=== PATIENT | female | born 1955 | race Caucasian/White ===

== ENCOUNTER 2024-03-24 07:56 | Inpatient (IN) | payer MEDICARE, BC, SELFPAY ==
[2024-03-24] VITALS (25 sets, daily range): BP systolic 79–134; BP diastolic 50–82; PULSE 57–74; RESP 14–20; TEMP 35.6–37.1; O2SAT 93–100; BMI 22.8
[2024-03-24] MEDS: SODIUM CHLORIDE 0.9 % (FLUSH) 10 ML SYRINGE IVF ×2 (09:14→23:33)
[2024-03-24] MEDS: LACTATED RINGERS 1000 ML 1,000 ML 100 ML IV (10:00)
[2024-03-24] MEDS: ACETAMINOPHEN 500 MG TABLET 1000 MG PO ×3 (10:02→23:30)
[2024-03-24] MEDS: CELECOXIB 200 MG CAPSULE PO (10:03)
[2024-03-24] MEDS: OXYCODONE (CR) 10 MG TAB.ER.12H PO (10:03)
--- NOTE | 2024-03-24 10:15 | CRLHL7_ITS ---
For Patients: As a result of the Century Cures Act, medical imaging exams and procedure reports are released immediately into your electronic medical record. You may view this report before your referring provider. If you have questions, please contact your health care provider. INDICATION: Bilateral total hip arthroplasty TECHNIQUE: C-arm fluoroscopy for bilateral total hip arthroplasty. Two C-arm spot images were obtained. Fluoroscopy time was 47.2 seconds. COMPARISON: 12/23/2023 FINDINGS: C-arm fluoroscopy for bilateral THR. IMPRESSION: C-arm fluoroscopy for bilateral THR. Dictated by Cleveland Senior MD @ 03/25/2024 2:56:33 PM (Electronically Signed)
--- NOTE | 2024-03-24 10:15 | CRLHL7_ITS ---
For Patients: As a result of the Century Cures Act, medical imaging exams and procedure reports are released immediately into your electronic medical record. You may view this report before your referring provider. If you have questions, please contact your health care provider. INDICATION: Bilateral total hip arthroplasty TECHNIQUE: C-arm fluoroscopy for bilateral total hip arthroplasty. Two C-arm spot images were obtained. Fluoroscopy time was 42.6 seconds. COMPARISON: None FINDINGS: C-arm fluoroscopy for bilateral THR. IMPRESSION: C-arm fluoroscopy for bilateral THR. Dictated by Cleveland Senior MD @ 03/25/2024 3:04:42 PM (Electronically Signed)
[2024-03-24] MEDS: MIDAZOLAM HCL 1 MG/ML inj IVP (10:36)
[2024-03-24] MEDS: fentaNYL 100 MCG/2 ML inj IVP (10:36)
--- NOTE | 2024-03-24 10:46 | SUR.PREOP ---
TIME?OUT:?1035, bilateral hips PT/RN/MDA?VERIFICATION?OF?SURGICAL?SITE,?PROCEDURE,?AND?CONSENT OBTAINED?PRIOR?TO?INVASIVE?PROCEDURE.
[2024-03-24] MEDS: CEFAZOLIN 2 GM INJ IVP (11:15)
[2024-03-24] MEDS: TRANEXAMIC ACID 100 MG/ML INJ 1000 MG IV (11:15)
[2024-03-24] MEDS: LACTATED RINGERS 500 ML 500 ML 125 ML IV (12:36)
[2024-03-24] MEDS: LACTATED RINGERS 500 ML 500 ML 100 ML IV (13:31)
--- NOTE | 2024-03-24 13:33 | CRLHL7_ITS ---
For Patients: As a result of the Cures Act, medical imaging exams and procedure reports are released immediately into your electronic medical record. You may view this report before your referring provider. If you have questions, please contact your health care provider. Indication: Postop JODIE Technique: AP hip centered pelvis and lateral view right hip Findings/Impression: Hardware from a right total hip arthroplasty is in satisfactory position. Bone alignment is normal. No sign of acute fracture. Postop changes are within normal limits. Dictated by Reed Grissom MD @ 03/25/2024 12:26:23 PM (Electronically Signed)
--- NOTE | 2024-03-24 13:34 | CRLHL7_ITS ---
For Patients: As a result of the Century Cures Act, medical imaging exams and procedure reports are released immediately into your electronic medical record. You may view this report before your referring provider. If you have questions, please contact your health care provider. Indication: Postop Technique: Portable cross-table lateral view left hip Findings/Impression: Hardware from a left total hip arthroplasty is in satisfactory position. Bone alignment is normal. No sign of acute fracture. Postop changes are within normal limits. Dictated by Reed Grissom MD @ 03/25/2024 12:25:19 PM (Electronically Signed)
--- NOTE | 2024-03-24 13:42 | P.ORPRC_ITS ---
Procedure Note Date of procedure: 03/24/24 Procedure: PREOPERATIVE DIAGNOSIS: Bilateral hip osteoarthritis POSTOPERATIVE DIAGNOSIS: Bilateral hip osteoarthritis NAME OF OPERATION: Bilateral total hip arthroplasty SURGEON: Vladimir Coyle MD CONVERTING TECHNICIAN: Anh Sigala PA-C, ESTEVAN Hughes IMPLANTS: 1. J[employer]J Carlos # 52 sector ingrowth cup 2. 36 x 52 +4 neutral polyethylene 3. Actis # 6 high collared ingrowth stem 4. 36 + 1.5 ceramic femoral head ANESTHESIA: General ESTIMATED BLOOD LOSS: 800 cc COMPLICATIONS: None SPECIMENS: None DRAINS: None PREOPERATIVE ANTIBIOTICS: Ancef 1 g, prior to each incision INDICATIONS: The patient is a 69-year-old with a longstanding history of severe, unrelenting bilateral hip pain secondary to end-stage right hip osteoarthritis. Despite appropriate nonoperative management, including activity modification, use of an assist device, anti-inflammatories, [id number] pain medication, physical therapy and injections, they continue to have pain and disability. Operative intervention was offered. The risks, benefits and expected outcomes were discussed in detail. These included but were not limited to: Infection, bleeding, injury to blood vessel or nerve, venous thromboembolism. All questions were answered to their satisfaction. Use of an geological survey field assistant was necessary throughout the case for patient positioning and safety, soft tissue retraction and closure. PROCEDURE: The patient was placed supine on the Bond table. General anesthesia was administered. The geological survey field assistant made sure the patient was properly positioned. The both hips were prepped and draped in the usual sterile fashion. The image intensifier was brought in for a perfect AP pelvis and a perfect double tear drop AP view of each hip which were used for intraoperative templating with our fluoroscopic guide. We started with the more symptomatic right hip. An oblique incision was made 3 cm distal and 3 cm lateral to the anterior superior iliac spine. The geological survey field assistant retracted the soft tissues to protect them. Subcutaneous dissection was taken with electrocautery to the superficial fascia. The fascia was divided in line with the incision. Blunt dissection was carried medially to the tensor fascia wilder and sartorius interval. Deep dissection was carried with electrocautery. The circumflex vessels were cauterized and divided. The capsule was exposed and then divided in a T-fashion, tagged with #1 Ethibond sutures. Retractors were placed in the joint, held by the geological survey field assistant. The corkscrew was placed in the femoral head. The neck cut was made in the subcapital region. We made a second neck cut more distal. The napkin ring of bone was removed. The femoral head was removed intact. Acetabular retractors were placed, held by the geological survey field assistant. The labrum was sharply debrided. The capsule was released. The 43 mm reamer was used to the true medial wall. We then enlarged in 2 mm increments using the image intensifier for our reamer placement. We impacted the cup which had excellent purchase. We placed the polyethylene. Attention was then turned to the proximal femur. The limb was placed in 140 degrees of external rotation, maximum extension and adduction. A significant amount of time was spent releasing the capsule to allow us to deliver the femur into the wound and complete the femoral side safely. Retractors were held by the geological survey field assistant throughout the femoral preparation. The box blank machine operator helper and canal finder were used. Broaches were used to a stable size. The calcar reamer was used. Trial components were placed. The hip was reduced and was found to be stable with appropriate soft tissue tension. Length and offset had been nicely restored using the image intensifier and our fluoroscopic guide. Trial components were removed. The stem was impacted. We placed the femoral head. Again, the hip was reduced and was found to be stable with appropriate soft tissue tension. Length and offset had been nicely restored. The geological survey field assistant did a three minute dilute Betadine solution soak. The geological survey field assistant irrigated the wound with 3 liters of normal saline via pulse lavage. The geological survey field assistant repaired the anterior capsule with a #1 Vicryl and our previously placed Ethibond sutures. The geological survey field assistant closed the fascia over the tensor fascia wilder with a #1 PDO Stratafix, subcutaneous tissues with 2-0 Vicryl, skin with a running 3-0 Stratafix and glue. A dry dressing was applied by the geological survey field assistant. EBL on the right hip was 400. The patient's vitals were stable. We therefore elected to proceed with left hip replacement. An oblique incision was made 3 cm distal and 3 cm lateral to the anterior superior iliac spine. The geological survey field assistant retracted the soft tissues to protect them. Subcutaneous dissection was taken with electrocautery to the superficial fascia. The fascia was divided in line with the incision. Blunt dissection was carried medially to the tensor fascia wilder and sartorius interval. Deep dissection was carried with electrocautery. The circumflex vessels were cauterized and divided. The capsule was exposed and then divided in a T-fashion, tagged with #1 Ethibond sutures. Retractors were placed in the joint, held by the geological survey field assistant. The corkscrew was placed in the femoral head. The neck cut was made in the subcapital region. We made a second neck cut more distal. The napkin ring of bone was removed. The femoral head was removed intact. Acetabular retractors were placed, held by the geological survey field assistant. The labrum was sharply debrided. The capsule was released. The 43 mm reamer was used to the true medial wall. We then enlarged in 2 mm increments using the image int ensifier for our reamer placement. We impacted the cup which had excellent purchase. We placed the polyethylene. Attention was then turned to the proximal femur. The limb was placed in 140 degrees of external rotation, maximum extension and adduction. A significant amount of time was spent releasing the capsule to allow us to deliver the femur into the wound and complete the femoral side safely. Retractors were held by the geological survey field assistant throughout the femoral preparation. The box blank machine operator helper and canal finder were used. Broaches were used to a stable size. The calcar reamer was used. Trial components were placed. The hip was reduced and was found to be stable with appropriate soft tissue tension. Length and offset had been nicely restored using the image intensifier and our fluoroscopic guide. Trial components were removed. The stem was impacted. We placed the femoral head. Again, the hip was reduced and was found to be stable with appropriate soft tissue tension. Length and offset had been nicely restored. The geological survey field assistant did a three minute dilute Betadine solution soak. The geological survey field assistant irrigated the wound with 3 liters of normal saline via pulse lavage. The geological survey field assistant repaired the anterior capsule with a #1 Vicryl and our previously placed Ethibond sutures. The geological survey field assistant closed the fascia over the tensor fascia wilder with a #1 PDO Stratafix, subcutaneous tissues with 2-0 Vicryl, skin with a running 3-0 Stratafix and glue. A dry dressing was applied by the geological survey field assistant. Sponge and needle counts were correct x 2. The patient tolerated the procedure well; there were no apparent complications. They were awakened and extubated in the operating room, sent to the Post-Anesthesia Care Unit in satisfactory condition. PLAN: 1. The patient will be mobilized with physical therapy, weight-bearing as tolerates 2. Xarelto x 5 days then aspirin x 30 days will be used for DVT prophylaxis 3. The patient will be discharged once medically appropriate
--- NOTE | 2024-03-24 14:28 | P.ANES_ITS ---
Anesthesia Charges Start Date/Time Anesthesia Start Date: 03/24/24 Anesthesia Start Time: 10:48 Stop Date/Time Anesthesia Stop Date: 03/24/24 Anesthesia Stop Time: 14:29 Coding CPT Codes CPT Codes: ANESTH HIP ARTHROPLASTY - 44463 ([id number]) P1 - NORMAL HEALTHY PATIENT, QK - MANAGER EMPLOYEE RELATIONS 2-4 CNCRNT ANEKarina PROC, QX - PATTERN DATA OPERATOR [employer] W/ MED DIRECTION
--- NOTE | 2024-03-24 14:28 | W.ANESCHARGE ---
Anesthesia Charges Start Date/Time Anesthesia Start Date: 03/24/24 Anesthesia Start Time: 10:48 Stop Date/Time Anesthesia Stop Date: 03/24/24 Anesthesia Stop Time: 14:29 Coding CPT Codes CPT Codes: ANESTH HIP ARTHROPLASTY - 86580 ([id number]) P1 - NORMAL HEALTHY PATIENT, QK - LOGISTIC SPECIALIST 2-4 CNCRNT ANEKarina PROC, QX - ENGINE REPAIRER SERVICE [employer] W/ MED DIRECTION
--- NOTE | 2024-03-24 14:37 | PM.IMCN1 ---
Date of Consult Consult date: 03/24/24 Primary Care Provider: Africa Patricia PA-C Consult Narrative Narrative: Nataliia Stephens is a 69 year old female with no significant past medical history except for Mitral valve prolapse, Patent foramen ovale, Rt eye vitreous detachment & Bilateral hip osteoarthritis , currently is s/p Bilateral total hip arthroplasty today March 24. ESTIMATED BLOOD LOSS: 800 cc. Patient denies any personal history of blood clots or miscarriages. She mentioned that her sibling had a blood clot and was told that it is triggered by his cancer. Patient does not take any chronic medications or supplements. When I met her she states that she feels great and is happy that she has done with this surgery. Review of Systems Status of ROS: Reports: 6 or more systems reviewed and unremarkable except as noted in History and below PFSH PFSH Surgical History (Updated 03/24/24 @ 16:29 by Geno Herman MD) Hx of neck surgery ?Z98.890 - Other specified postprocedural states (ICD-10) Ovarian cyst ?N83.209 - Unspecified ovarian cyst, unspecified side (ICD-10) Family History (Updated 12/23/23 @ 08:39 by Giovanna Arana ~ [facility], [facility]) Family/Other Arthritis Social History What is your current living situation?: I presently have a place to live Problems where you live: no known problems Problems where you live details: xx In the past 12 months, utilities in danger of being shut off: no In past 12 months, lack of transportation kept you from medical appts, meetings, work, or getting things needed for daily living: no In the past 12 mos, have been you worried that your food would run out before you had money to buy more?: never true In the past 12 mos, the food you bought just didn't last and you didn't have money to buy more?: never true Highest level of school completed/degree received: decline to answer Smoking Status: Never smoker How often do you have a drink containing alcohol: 2-4 times a month How often do you have six or more drinks on one occasion: Never AUDIT-C Alcohol total score: 2 Non-prescribed substance use: denies use Caffeine: Yes How often does anyone, including family, friends and others, physically hurt you: never How often does anyone, including family, friends and others, insult or talk down to you: never How often does anyone, including family, friends and others, threaten you with harm: never How often does anyone, including family, friends and others, scream or curse at you: never Meds Home Medications and Allergies Home Medications ?Medication ?Instructions ?Recorded ?Confirmed ?Type No Known Home Medications 12/23/23 03/24/24 History Allergies Allergy/AdvReac Type Severity Reaction Status Date / Time No Known Drug Allergies Allergy Verified 03/24/24 08:11 Exam Narrative: Exam Narrative: Physical exam GENERAL: Comfortable, no acute distress. HEAD AND NECK: Atraumatic, normocephalic CARDIOVASCULAR: RRR. Normal S1, S2. No murmurs. RESPIRATORY: Clear to auscultation B/L. Good air entry B/L. No wheezes or rhonchi. NEUROLOGY: Alert, awake, oriented X 3. Normal speech. PSYCH: Normal mood, normal affect. Const: Vital Signs, click to edit/add: Vital Signs - 24 hr 03/24/24 08:40 03/24/24 10:35 03/24/24 10:40 Temperature 98.8 F Pulse Rate 69 74 60 Respiratory Rate 20 20 20 Blood Pressure 126/81 134/82 117/66 Pulse Oximetry 100 100 98 Oxygen Delivery Me thod Room Air Nasal Cannula Nasal Cannula Oxygen Flow Rate 2 2 03/24/24 14:25 Temperature 97.8 F Pulse Rate 66 Respiratory Rate 16 Blood Pressure 88/52 L Pulse Oximetry 95 Oxygen Delivery Me thod Room Air Oxygen Flow Rate Assessment and Plan Assessment and plan (1) Status post bilateral total hip replacement: Problem comment: s/p Bilateral total hip arthroplasty March 24 Status: Acute (2) Osteoarthritis of right hip: Problem comment: -s/p Bilateral total hip arthroplasty today March 24 -Start early ambulation with physical therapy. -Start Xarelto x 5 days then aspirin x 30 days for DVT prophylaxis -Monitor for urine output postoperatively, bladder scan if needed. -Monitor vital signs. -Encourage incentive spirometry. Status: Acute (3) Osteoarthritis of left hip: Problem comment: s/p Bilateral total hip arthroplasty today March 24 Status: Acute (4) Patent foramen ovale: Problem comment: No Hx of Sx repair Status: Acute (5) Mitral valve prolapse: Status: Acute (6) Vitreous detachment of right eye: Status: Acute Total Time Spent Total Time Spent: Time spent: Today I spent 50 minutes seeing the patient, discussing the patient with ER staff, reviewing Expanse and EPIC notes/diagnostics, discussing the care plan with our care time that includes social work, PT/OT, pharmacy, RT, shelter and documenting my impressions and plan in the medical record.
[2024-03-24] MEDS: ePHEDrine sulfate 5 MG/ML inj IVP ×3 (14:43→14:58)
--- NOTE | 2024-03-24 14:48 | P.ANES_ITS ---
Anesthesia Charges Start Date/Time Anesthesia Start Date: 03/24/24 Anesthesia Start Time: 10:48 Stop Date/Time Anesthesia Stop Date: 03/24/24 Anesthesia Stop Time: 14:29 Coding CPT Codes CPT Codes: ANESTH HIP ARTHROPLASTY - 98346 ([id number]) QK - DYNAMICS AX TECHNICAL ARCHITECT 2-4 CNCRNT ANES PROC, QX - PSYCHIATRIC AIDE INSTRUCTOR SVC W/ MD MED DIRECTION, P1 - NORMAL HEALTHY PATIENT
--- NOTE | 2024-03-24 14:48 | W.ANESCHARGE ---
Anesthesia Charges Start Date/Time Anesthesia Start Date: 03/24/24 Anesthesia Start Time: 10:48 Stop Date/Time Anesthesia Stop Date: 03/24/24 Anesthesia Stop Time: 14:29 Coding CPT Codes CPT Codes: ANESTH HIP ARTHROPLASTY - 17083 ([id number]) QK - RESTORER PAPER AND PRINTS 2-4 CNCRNT ANES PROC, QX - RENEWABLE ENERGY CONSULTANT SVC W/ MD MED DIRECTION, P1 - NORMAL HEALTHY PATIENT
--- NOTE | 2024-03-24 14:50 | P.NB_ITS ---
Nerve Block Nerve Block Time Seen by Provider: 10:37 Date Seen: 03/24/24 Type of block requested by surgeon for post-operative analgesia: MAREN/LFCN Side: right Time out performed: Yes Verification of patient name: Yes Verification of date of : Yes Site marking: site marked Name of person performing procedure: Rcihy Continuous monitoring Was continuous monitoring of O2 sat, B/P, automated process operator, recorded every 15 minutes?: Yes Procedure Checklist: sterile prep, needles and gloves Ultrasound guided. Images saved: Yes Medications given in 5ml increments after negative aspiration: Marcaine %: 0.25 mL: 17 Needle gauge: 20 and Exparel mL: 8 Patient tolerated procedure well: Yes Additional comments: Needle noted below psoas tendon needle noted adjacent to LFCN Block Charges Block Charge (with Pro Fee): Other Periph Nerve Block Use of Ultrasound Machine for Block: Yes- US Guidance/pain block
[2024-03-24] MEDS: fentaNYL 100 MCG/2 ML inj 50 MCG IVP ×2 (14:53→15:03)
--- NOTE | 2024-03-24 14:55 | W.PM.NB ---
Nerve Block Nerve Block Time Seen by Provider: 10:40 Date Seen: 03/24/24 Type of block requested by surgeon for post-operative analgesia: MAREN/LFCN Side: left Time out performed: Yes Verification of patient name: Yes Verification of date of : Yes Site marking: site marked Name of person performing procedure: Richy Continuous monitoring Was continuous monitoring of O2 sat, B/P, school lunch monitor, recorded every 15 minutes?: Yes Procedure Checklist: sterile prep, needles and gloves Ultrasound guided. Images saved: Yes Medications given in 5ml increments after negative aspiration: Marcaine %: 0.25 mL: 17 Needle gauge: 20 and Exparel mL: 8 Patient tolerated procedure well: Yes Additional comments: Needle noted below psoas tendon needle noted adjacent to LFCN Block Charges Block Charge (with Pro Fee): Other Periph Nerve Block Use of Ultrasound Machine for Block: Yes- US Guidance/pain block
[2024-03-24] MEDS: LACTATED RINGERS 1000 ML 1,000 ML 75 ML IV (15:25)
--- NOTE | 2024-03-24 15:25 | SUR.PHASEI ---
pt reports bilateral hip pain 4/10, calling it moderate pain. Medications given. ice packs applied to bilateral hips. pt states oh, that feels better. Tolerated ice chips. D/C'd from PACU to room CCu2 on med/surg.
[2024-03-24] MEDS: OXYCODONE 5 MG TABLET PO ×2 (15:46→23:30)
[2024-03-24] MEDS: CEFAZOLIN 1 GM in 0.9 % SODIUM CHLORIDE Mini-bag 100 ML IVPB (17:57)
--- NOTE | 2024-03-24 18:55 | PC.NURSE ---
End of shift summary: Pt arrived to the floor from PACU at 1520. She is A&O, afebrile (temps running a little low), and VSS. BP's have been soft but MAP remains > 60 and she's been asymptomatic. LR infusing @ 75 mL/hr. Pt has tolerated PO intake but has not voided yet nor has she been out of bed. Pt reported bilateral hip pain at 5/10 and PRN oxycodone 10mg given @ 1545 and pain came down to a 1/10. Bilateral hip dressings are C/D/I and active ice in place. CMS intact. IS instructions given & pt able to perform independently. SCD's in place. Denies nausea or dizziness, just feels fatigued.
[2024-03-24] MEDS: SENNOSIDES 1 TAB TABLET 2 TAB PO (20:28)
[2024-03-25] MEDS: CEFAZOLIN 1 GM in 0.9 % SODIUM CHLORIDE Mini-bag 100 ML IVPB (02:47)
[2024-03-25 03:00] VITALS: BP 114/63; PULSE 67; RESP 16; TEMP 36.6; O2SAT 99
--- NOTE | 2024-03-25 05:32 | PC.NURSE ---
[id number] Pt doing very well, ambulated halls x2 with walker, GB, SBA, tolerating activity great, denies lightheaded/dizziness, no N/V, denies chest pain or headache. tolerating PO intake. bilateral hip dressing C/D/I, ice to operative site throughout shift. pain controlled with scheduled and prn pain medication, rating pain 0-2/10 this entire shift. bilateral pedal pulses present
[2024-03-25] MEDS: ACETAMINOPHEN 500 MG TABLET 1000 MG PO ×2 (05:52→12:15)
[2024-03-25] MEDS: OXYCODONE 5 MG TABLET PO ×4 (05:52→14:02)
[2024-03-25 06:26] LABS: Basophils Absolute Auto 0.01 K/uL (0.00-0.30); Basophils Percent Auto 0.1 % (0.0-3.0); Eosinophils Absolute Auto 0.01 K/uL (0.00-0.50); Eosinophils Percent Auto 0.1 % (0.0-7.0); Hematocrit 27.5 % (33.0-51.0); Hemoglobin* 9.1 gm/dL (12.0-16.0); Immature Granulocytes Abs Auto 0.01 K/uL (0.00-0.30); Immature Granulocytes Pct Auto 0.1 %; Lymphocytes Percent Auto 16.1 % (20-44); Mean Corpuscular HGB Conc 33 gm/dL (32-36); Mean Corpuscular Hemoglobin 30 pg (26-34); Mean Corpuscular Volume 92 fL (80-100); Monocytes Percent Auto 8.5 % (0.0-11.0); Neutrophils Percent Auto 75.1 % (42.0-72.0); Platelet Count* 197 K/uL (140-440); RDW Coefficient of Variation % 12.7 % (11.5-15.5); Red Blood Count 2.99 m/uL (4.00-5.20); White Blood Count* 6.94 K/uL (4.50-11.00)
[2024-03-25 06:34] LABS: Slide Review Reflex No
[2024-03-25 06:54] LABS: Sodium* 136 mmol/L (135-149)
[2024-03-25 06:57] LABS: Blood Urea Nitrogen* 17 mg/dL (7-30); Creatinine* 0.6 mg/dL (0.5-1.5); Est. Creatinine Clearance* 54.32; Estimated Glomerular Filt Rate 98 ml/min
[2024-03-25 07:00] VITALS: RESP 18; O2SAT 100
[2024-03-25 07:49] VITALS: BP 98/63; PULSE 69; RESP 18; TEMP 37; O2SAT 100
--- NOTE | 2024-03-25 08:42 | PM.ORPN ---
Subjective Subjective Time Seen by Provider: 07:30 Date Seen: 03/25/24 Principal diagnosis: Status post bilateral hip replacement Interval history: Nataliia states she has been doing well, has ambulated several times since her surgery yesterday. The 3rd time she ambulated, however she felt sweaty and a touch lightheaded. She was able to ambulate back to her room. She is comfortable currently. Ortho Exam Narrative Exam Narrative: Alert and oriented x3. Patient is in no acute distress. Converses without labored breathing. Hearing is grossly intact. Ambulates with a walker. Blood pressure 98/63. Dressings are intact. Able to flex and extend her ankles. CMS intact bilateral lower extremity. Const Vital Signs, click to edit/add: Vital Signs - 24 hr 03/24/24 10:35 03/24/24 10:40 03/24/24 14:25 Temperature 97.8 F Pulse Rate 74 60 66 Pulse Rate [Pulse Oximeter] Respiratory Rate 20 20 16 Blood Pressure 134/82 117/66 88/52 L Blood Pressure [Left Arm] Pulse Oximetry 100 98 95 Oxygen Delivery Method Nasal Cannula Nasal Cannula Room Air Oxygen Flow Rate 2 2 03/24/24 14:30 03/24/24 14:35 03/24/24 14:40 Temperature Pulse Rate 60 68 60 Pulse Rate [Pulse Oximeter] Respiratory Rate 16 16 14 Blood Pressure 79/54 L 87/55 L 85/52 L Blood Pressure [Left Arm] Pulse Oximetry 95 95 98 Oxygen Delivery Method Room Air Room Air Room Air Oxygen Flow Rate 2 2 03/24/24 14:45 03/24/24 14:50 03/24/24 14:55 Temperature Pulse Rate 60 60 65 Pulse Rate [Pulse Oximeter] Respiratory Rate 16 16 16 Blood Pressure 82/50 L 103/61 88/57 L Blood Pressure [Left Arm] Pulse Oximetry 95 97 97 Oxygen Delivery Method Room Air Room Air Room Air Oxygen Flow Rate 2 2 2 03/24/24 15:00 03/24/24 15:05 03/24/24 15:10 Temperature 97.2 F L Pulse Rate 65 64 69 Pulse Rate [Pulse Oximeter] Respiratory Rate 16 16 16 Blood Pressure 101/61 97/61 107/61 Blood Pressure [Left Arm] Pulse Oximetry 97 97 93 Oxygen Delivery Method Room Air Room Air Room Air Oxygen Flow Rate 03/24/24 15:20 03/24/24 15:35 03/24/24 15:50 Temperature 96.4 F L 96.3 F L 96.1 F L Pulse Rate 60 70 61 Pulse Rate [Pulse Oximeter] Respiratory Rate 14 16 16 Blood Pressure 100/61 106/71 100/70 Blood Pressure [Left Arm] Pulse Oximetry 96 98 100 Oxygen Delivery Method Room Air Room Air Room Air Oxygen Flow Rate 03/24/24 16:05 03/24/24 16:20 03/24/24 16:50 Temperature 96.3 F L 96.4 F L 96.8 F L Pulse Rate 57 L 61 60 Pulse Rate [Pulse Oximeter] Respiratory Rate 16 16 16 Blood Pressure 97/65 107/80 107/63 Blood Pressure [Left Arm] Pulse Oximetry 100 100 100 Oxygen Delivery Method Room Air Room Air Room Air Oxygen Flow Rate 2 03/24/24 17:25 03/24/24 18:38 03/24/24 19:00 Temperature 97.5 F L 97.2 F L 98.1 F Pulse Rate 63 72 74 Pulse Rate [Pulse Oximeter] Respiratory Rate 16 16 16 Blood Pressure 107/70 92/58 L 95/57 L Blood Pressure [Left Arm] Pulse Oximetry 99 97 99 Oxygen Delivery Method Room Air Room Air Room Air Oxygen Flow Rate 0 03/24/24 20:20 03/24/24 22:20 03/24/24 23:00 Temperature 98.1 F 97.3 F L Pulse Rate 70 Pulse Rate [Pulse Oximeter] 64 Respiratory Rate 16 16 16 Blood Pressure 89/68 L Blood Pressure [Left Arm] 98/60 Pulse Oximetry 98 98 99 Oxygen Delivery Method Room Air Room Air Room Air Oxygen Flow Rate 0 0 0 03/25/24 03:00 03/25/24 07:00 03/25/24 07:49 Temperature 97.9 F Pulse Rate Pulse Rate [Pulse Oximeter] 67 69 Respiratory Rate 16 18 18 Blood Pressure Blood Pressure [Left Arm] 114/63 Pulse Oximetry 99 100 Oxygen Delivery Method Room Air Room Air Oxygen Flow Rate 0 03/25/24 07:49 Temperature 98.6 F Pulse Rate Pulse Rate [Pulse Oximeter] 69 Respiratory Rate 18 Blood Pressure Blood Pressure [Left Arm] 98/63 Pulse Oximetry 100 Oxygen Delivery Method Room Air Oxygen Flow Rate Assessment and Plan Assessment and plan (1) Status post bilateral hip replacements: Problem details: 03/24/2024 Status: Acute Assessment and Plan: Plan for discharge is today or tomorrow, and when they meets discharge criteria. Dr. Shipman is aware of her orthostasis and orthostatic blood pressures will be taken. DVT prophylaxis upon discharge includes Xarelto 10 mg daily for 5 days, then aspirin 81 mg twice daily for 30 days, frequent ambulation. Remove dressing 1 week. Observe wound and phone Orthopedics with any questions or concerns Use Ice on operative hip unrestricted. Return to clinic in 1 week for a wound check Return to clinic in 6 weeks with surgeon Minimize narcotic use. Wean off and discontinue soon as possible. Activities as tolerated. No strenuous activity. Attend outpt PT
[2024-03-25 09:26] VITALS: BP 115/62; BP 84/51; BP 98/43; PULSE 71; PULSE 87; PULSE 94
[2024-03-25] MEDS: SENNOSIDES 1 TAB TABLET 2 TAB PO (10:18)
[2024-03-25] MEDS: RIVAROXABAN 10 MG TABLET PO (10:19)
[2024-03-25 11:00] VITALS: BP 104/52; PULSE 75; RESP 18; O2SAT 99
== END 2024-03-25 14:04 | disposition home or self-care (01) | DRG 462 ==
PROVIDERS: Admitting Provider Orthopaedic Surgery; PCP Physician Assistant; Visit Provider Orthopaedic Surgery
PROC: 0SR90JZ Replacement of Right Hip Joint with Synthetic Substitute, Open Approach (ICD-10-PCS; CPT 27130; principal; 2024-03-24 10:15)
DX: M16.0 Bilateral primary osteoarthritis of hip (principal); Q21.12 Patent foramen ovale; I34.1 Nonrheumatic mitral (valve) prolapse; H43.811 Vitreous degeneration, right eye; G89.18 Other acute postprocedural pain
CPT/HCPCS: 01214; 36415; 64450; 73501; 76000; 76942; 82565; 84132; 84295; 84520; 85025; 86850; 86900; 86901; 97110; 97116; 97161; 97165; 97530; 97535; A9270; C1776; J0330; J0665; J0666; J0690; J1100; J2250; J2371; J2405; J2704; J3010; J3490; J7120

== ENCOUNTER 2024-06-20 14:00 | Outpatient (RCR) | payer MEDICARE, BC, SELFPAY ==
--- NOTE | 2024-02-03 15:52 | PT.OPE ---
PT [place] Out[facility] Eval PT [facility] Out[facility] Eval Start: 02/02/24 08:04 Freq: Status: Active Protocol: Document 02/03/24 14:37 LSL (Rec: 02/03/24 15:46 LSL [id number]) E-signed By Sara Ramirez, PT Physical Therapy Outpatient Evaluation Insurance Information Insurance Name Medicare B,Blue Cross/Blue Shield Medical Diagnosis B primary hip OA s/p B JODIE Treating Diagnosis pain, weakness, impaired ROM, impaired gait Referring MD Coyle Subjective Subjective Pt. has B anterior hip/groin pain and had some sciatic pain and quit playing pickle ball due to it. The limping is triggering the sciatic. I did a lot of walking in [place] with a fair amount of pain. R hip is worse than L. Wants to be able to resume her active lifestyle including pickle ball, cross country skiing, kayaking, hiking and working out. 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 is a 68 y/o female with B hip pain and exceptional limitation in her ability to walk normally and abduct her hips. She leads a very active lifestyle and would like to be able to return to these activities. She is a great candidate for this procedure and should respond well with treatment to consist of manual therapy prn to assist with tissue tightness and swelling, therex and NM re-ed to return her level of function to independence as she lives alone. Primary Functional Limitations walking, pickle ball, driving, get in and out of kayak, cross country ski, working out , hiking Plan of Care Rehabilitation Potential Excellent Physical Therapy Goals SHORT TERM GOALS: (3 weeks) 1. Pt. able to independently perform SLR to get leg in and out of car/bed. 2. Pt. able to don/doff her own pants, socks and shoes. 3. Pt. able to independently ascend/descend two steps to enter and exit her home. FINANCIAL SERVICES REP GOALS: 96-8 weeks) 1. Pt. able to ambulate independently for 15 minutes to be able to run errands. 2. Pt. perform repetitive hip flexion/extension to be able to drive. 3. Pt. has SL balance of 10 seconds or greater and able to withstand perturbations in SLS for safety in slick weather conditions. Coordination/Communication With Referral Source Treatment Plan/Direct Interventions Gait Training,Manual Therapy, Neuromuscular Re-ed, Therapeutic Exercises Frequency/Duration 1-2x/week 6-8 weeks Patient Will Be Discharged From Therapy Completion of LTG(s) Evaluation Billing Untimed Code Treatment Minutes 40 Complexity Moderate Certification Information Initial Certification Date 02/03/24 Ending Certification Date 05/03/24 Provider Signature Required Yes Provider Signature Shows Agreement With POC & Medical Necessity Physician NPI Number Write NPI# Here Physician Comment/Change : Physician Signature & Date Requested Please Sign/Date Here
--- NOTE | 2024-05-09 10:44 | PT.OPDN ---
PT [facility] Daily Note PT [facility] Daily Note Start: 02/02/24 08:04 Freq: Status: Active Protocol: Document 05/09/24 09:12 LSL (Rec: 05/09/24 10:42 LSL [id number]) E-signed By Sara Ramirez, PT PT OP Daily Progress Note Visit Information Note Type Daily Note Visit Number 7 Insurance Authorized Visits Medicare guidelines Physician Authorized Visits TBD Insurance Information Recert Due Date 05/03/24 Insurance Name Medicare B,Blue [employer] Medical Diagnosis B primary hip OA s/p B JODIE Treating Diagnosis pain, weakness, impaired ROM, impaired gait Referring MD Coyle Subjective Subjective Pt. reports she went for a 4 mile walk yesterday and iced when she got home. It felt great. Totally pain free and I could put my socks on this morning without an ab cramp. Just a little stiffness if I push a little too hard. Pain Comments 0/10 worst Date of Last Physician Visit 01/18/24 Date of Surgery (If applicable) 03/24/24 Precautions Treatment Precautions/Contraindications Presents today ambulating independently Weight Bearing Status Full Weight Bearing Home Exercise Home Exercise Comments [facility]: [id number] bridge with TB, adductor isometric, ER isometric, flexed trunk hip extension, hip IR/ER AROM, clamshell hooklying or sidelying, plank from knee, supine TA with band , ball and overhead, step ups, lateral step ups Objective Other/Pertinent Objective AROM - improving. Less struggle to get socks on. Improved abduction to allow wide base stance for lateral lunge dips. STRENGTH - L hip ER 4/5 with pain, B flexion 4+/5, hip extension 4/5 FUNCTION - unable to lead with L leg to get off floor BALANCE - a few seconds B Patient Instructed in Risks/Benefits Yes Therapeutic Exercise Therapeutic Exercise Minutes (minutes) 60 Therapeutic Exercise: To Restore Bike S8 L7 10' Functional Status CC walk out 12.5# 5x ea LAQ 55# 2x10 HS curl 45# 2x10 RDL 25# 2x10 lateral lunge dips 3x 8 step ups 2x10 ea 8 lateral step up 2x10 leg press S11 80# 2x10, 100# 10x SL leg press S11 10# R 10x, L 10x Practice: lateral lunge dips hip extension off bench icelandic split squat surrender squats Treatment Minutes Timed Code Treatment Minutes 60 Total Treatment Time 60 Billing Units Therapeutic Exercise Units 4 Assessment/Impression Assessment/Impression Pt. is doing really well with progressive strengthening. L hip remains weaker than R through full functional range. Her ability to abduct continues to improve. Suggested 3x/week strength training working to 3x10 at comfortable level through her 3rd month and working on increasing her protein intake as she feels she regularly gets 50g. Primary Functional Limitations dressing, walking, stairs, driving, sleeping Plan of Care Physical Therapy Goals SHORT TERM GOALS: (3 weeks) 1. Pt. able to independently perform SLR to get leg in and out of car/bed.(MET) 2. Pt. able to don/doff her own pants, socks and shoes. ( MET) 3. Pt. able to independently ascend/descend two steps to enter and exit her home. (MET) LONGTERM GOALS: (6-8 weeks) 1. Pt. able to ambulate independently for 15 minutes to be able to run errands.(MET ) 2. Pt. perform repetitive hip flexion/extension to be able to drive. (MET) 3. Pt. has SL balance of 10 seconds or greater and able to withstand perturbations in SLS for safety in slick weather conditions. (making progress) 4. Pt. able to return to hiking in [place] and pickle ball. Daily Plan of Care Continue per POC Daily Plan of Care Comments Ongoing POC to consist of therex, NM re-ed, gait training, manual therapy Recertification Information Initial Certification Date 02/03/24 Recertification Start Date 05/03/24 Recertification Due Date 07/29/24 Reasons to Continue Skilled Therapy balance, strength impairment Rehabilitation Potential Excellent Continued Plan of Care and Interventions Continue progression of therex and balance mostly through HEP with weekly check ins for progression for next month and then every 2-3 weeks for the following month as she is young and active and wants to be able to hike, kayak, walk and play pickle ball Provider Signature Shows Agreement With POC & Medical Necessity Physician Comment/Change Comment or Changes Physician NPI Number #
== END 2024-08-03 09:26 | disposition home or self-care (01) ==
PROVIDERS: PCP Physician Assistant; Visit Provider Orthopaedic Surgery
DX: M16.0 Bilateral primary osteoarthritis of hip (principal); Z96.643 Presence of artificial hip joint, bilateral; Z51.89 Encounter for other specified aftercare
CPT/HCPCS: 97032; 97110; 97112; 97116; 97140; 97162; 97164